=== PATIENT | female | born 1975 | race Caucasian/White ===

== ENCOUNTER 2017-11-10 02:01 | Emergency (ER) | payer BC ==
[2017-11-10 03:56] VITALS: BP 110/62
--- NOTE | 2017-11-10 04:48 | EDM.PDOC ---
ED HPI GENERAL MEDICAL PROBLEM - General Chief Complaint: Drug or Alcohol Abuse Stated Complaint: OVERDOSE Time Seen by Provider: 11/10/17 02:47 Source of Information: Reports: Family History Limitations: Reports: Altered Mental Status - History of Present Illness INITIAL COMMENTS - FREE TEXT/NARRATIVE: This lady was brought in because her family thinks she may hav accidentally take too [facility] medication tonight. Someone checked on her and found that she was very groggy and so became concerned. The patient denies taking too much mediation or trying to hurt herself. Treatments FINANCIAL CENTER MANAGER: Reports: Other (see below) Other Treatments FINANCIAL CENTER MANAGER: Unknown - Related Data Allergies Allergy/AdvReac Type Severity Reaction Status Date / Time clindamycin Allergy Rash Verified 11/10/17 02:21 latex Allergy Hives Verified 11/10/17 02:21 morphine Allergy Swelling Verified 11/10/17 02:21 sertraline HCl [From Zoloft] Allergy Diarrhea Verified 11/10/17 02:21 sulfamethoxazole Allergy Cannot Verified 11/10/17 02:21 [From Bactrim] Remember trimethoprim [From Bactrim] Allergy Cannot Verified 11/10/17 02:21 Remember Home Meds: Home Meds Estrogens, Conjugated [Premarin] 1.25 mg PO DAILY 12/19/12 [History] Gabapentin [Neurontin] 600 mg PO TID 12/19/12 [History] Ibuprofen 600 mg PO Q4HR PRN 01/20/14 [History] Multivitamin [Multivitamins] 1 each PO DAILY 01/20/14 [History] Eszopiclone [Lunesta] 3 mg PO DAILY 02/02/16 [History] Acetaminophen with Codeine [Acetaminophen-Cod #3] 1 tab PO Q4HR PRN 11/10/17 [ History] Carisoprodol 350 mg PO TID 11/10/17 [History] LORazepam 1 mg PO TID 11/10/17 [History] Past Medical History - Past Health History Medical/Surgical History: Denies Medical/Surgical History (Unable to obtain) - Infectious Disease History Infectious Disease History: Reports: Chicken Pox Social & Family History - Family History Family Medical History: Noncontributory - Tobacco Use Smoking Status *Q: Current Every Day Smoker Years of Tobacco use: 30 Packs/Tins Daily: 0.5 Second Hand Smoke Exposure: No - Caffeine Use Caffeine Use: Reports: Soda Other Caffeine Use: mountain dew - 6 12oz cans. - Recreational Drug Use Recreational Drug Use: No - Living Situation & Occupation Living situation: Reports: with Family ED ROS GENERAL - Review of Systems Review Of Systems: ROS reveals no pertinent complaints other than HPI. - Physical Exam Exam: See Below Exam Limited By: Altered Mental Status General Appearance: WD/WN, No Apparent Distress, Other (mild to moderate sedation) Eye Exam: Bilateral Eye: Normal Inspection Ears: Normal External Exam Nose: Normal Inspection Throat/Mouth: Normal Oropharynx Head Exam: Atraumatic Neck: Supple Respiratory/Chest: Lungs Clear Cardiovascular: Regular Rate, Rhythm, No Murmur GI/Abdominal: Soft, Non-Tender Neuro Exam (Abbreviated): CN II-XII Intact, No Motor/Sensory Deficits, Slow to Respond Extremities: Normal Inspection Psychiatric: Normal Affect Skin Exam: Warm, Dry Course - Vital Signs Last Recorded V/S: Last Vital Signs Temp 36.4 C 11/10/17 03:55 Pulse 98 11/10/17 03:55 Resp 14 11/10/17 03:55 BP 110/62 11/10/17 03:55 Pulse Ox 99 11/10/17 03:55 - Orders/Labs/Meds Labs: Laboratory Tests 11/10/17 11/10/17 11/10/17 Range/Units 02:59 02:59 02:59 WBC 9.1 (4.5-11.0) K/uL RBC 4.24 (3.30-5.50) M/uL Hgb 13.2 (12.0-15.0) g/dL Hct 38.8 (36.0-48.0) % MCV 92 (80-98) fL MCH 31 (27-31) pg MCHC 34 (32-36) % Plt Count 242 (150-400) K/uL Neut % (Auto) 51 (36-66) % Lymph % (Auto) 35 (24-44) % [place] % (Auto) 11 H (2-6) % Eos % (Auto) 2 (2-4) % Baso % (Auto) 0 (0-1) % Sodium (140-148) mmol/L Potassium (3.6-5.2) mmol/L Chloride (100-108) mmol/L Carbon Dioxide (21-32) mmol/L Anion Gap (5.0-14.0) mmol/L BUN (7-18) mg/dL Creatinine (0.6-1.0) mg/dL Est Cr Clr Drug Dosing mL/min Estimated GFR (MDRD) (>60) Glucose (74-106) mg/dL Calcium (8.5-10.1) mg/dL Total Bilirubin (0.2-1.0) mg/dL AST (15-37) U/L ALT (12-78) U/L Alkaline Phosphatase (46-116) U/L Total Protein (6.4-8.2) g/dL Albumin (3.4-5.0) g/dL Globulin (2.3-3.5) g/dL Albumin/Globulin Ratio (1.2-2.2) Urine Color Urine Appearance Urine pH (4.5-8.0) Ur Specific [place] (1.008-1.030) Urine Protein (NEGATIVE) mg/dL Urine Glucose (UA) (NEGATIVE) mg/dL Urine Ketones (NEGATIVE) mg/dL Urine Occult Blood (NEGATIVE) Urine Nitrite (NEGATIVE) Urine Bilirubin (NEGATIVE) Urine Urobilinogen (NORMAL) mg/dL Ur Leukocyte Esterase (NEGATIVE) Urine RBC (0-5) Urine WBC (0-5) Ur Epithelial Cells Amorphous Sediment Urine Bacteria Urine Mucus Urine Opiates Screen (NEGATIVE) Ur Oxycodone Screen (NEGATIVE) Urine Methadone Screen (NEGATIVE) Ur Propoxyphene Screen (NEGATIVE) Acetaminophen 0.0 L (10.0-30.0) ug/mL Ur Barbiturates Screen (NEGATIVE) Ur Tricyclics Screen (NEGATIVE) Ur Phencyclidine Scrn (NEGATIVE) Ur Amphetamine Screen (NEGATIVE) U Methamphetamines Scrn (NEGATIVE) Urine MDMA Screen (NEGATIVE) U Benzodiazepines Scrn (NEGATIVE) U Cocaine Metab Screen (NEGATIVE) U Marijuana (THC) Screen (NEGATIVE) Ethyl Alcohol < 3 mg/dL 11/10/17 11/10/17 11/10/17 Range/Units 02:59 03:33 03:37 WBC (4.5-11.0) K/uL RBC (3.30-5.50) M/uL Hgb (12.0-15.0) g/dL Hct (36.0-48.0) % MCV (80-98) fL MCH (27-31) pg MCHC (32-36) % Plt Count (150-400) K/uL Neut % (Auto) (36-66) % Lymph % (Auto) (24-44) % [place] % (Auto) (2-6) % Eos % (Auto) (2-4) % Baso % (Auto) (0-1) % Sodium 139 L (140-148) mmol/L Potassium 4.1 (3.6-5.2) mmol/L Chloride 102 (100-108) mmol/L Carbon Dioxide 26 (21-32) mmol/L Anion Gap 15.1 H (5.0-14.0) mmol/L BUN 13 (7-18) mg/dL Creatinine 1.0 (0.6-1.0) mg/dL Est Cr Clr Drug Dosing 62.33 mL/min Estimated GFR (MDRD) > 60 (>60) Glucose 95 (74-106) mg/dL Calcium 8.2 L (8.5-10.1) mg/dL Total Bilirubin 0.2 (0.2-1.0) mg/dL AST 32 (15-37) U/L ALT 17 (12-78) U/L Alkaline Phosphatase 65 D (46-116) U/L Total Protein 6.9 (6.4-8.2) g/dL Albumin 3.1 L (3.4-5.0) g/dL Globulin 3.8 H (2.3-3.5) g/dL Albumin/Globulin Ratio 0.8 L (1.2-2.2) Urine Color Yellow Urine Appearance Cloudy Urine pH 8.0 (4.5-8.0) Ur Specific [place] 1.010 (1.008-1.030) Urine Protein Negative (NEGATIVE) mg/dL Urine Glucose (UA) Normal (NEGATIVE) mg/dL Urine Ketones Negative (NEGATIVE) mg/dL Urine Occult Blood Negative (NEGATIVE) Urine Nitrite Positive H (NEGATIVE) Urine Bilirubin Negative (NEGATIVE) Urine Urobilinogen Normal (NORMAL) mg/dL Ur Leukocyte Esterase Moderate (NEGATIVE) Urine RBC 0-5 (0-5) Urine WBC 5-10 H (0-5) Ur Epithelial Cells Moderate Amorphous Sediment Not seen Urine Bacteria Many Urine Mucus Not seen Urine Opiates Screen Negative (NEGATIVE) Ur Oxycodone Screen Negative (NEGATIVE) Urine Methadone Screen Negative (NEGATIVE) Ur Propoxyphene Screen Negative (NEGATIVE) Acetaminophen (10.0-30.0) ug/mL Ur Barbiturates Screen Negative (NEGATIVE) Ur Tricyclics Screen Negative (NEGATIVE) Ur Phencyclidine Scrn Negative (NEGATIVE) Ur Amphetamine Screen Negative (NEGATIVE) U Methamphetamines Scrn Negative (NEGATIVE) Urine MDMA Screen Negative (NEGATIVE) U Benzodiazepines Scrn Presumptive positive H (NEGATIVE) U Cocaine Metab Screen Negative (NEGATIVE) U Marijuana (THC) Screen Presumptive positive H (NEGATIVE) Ethyl Alcohol mg/dL - Re-Assessments/Exams Free Text/Narrative Re-Assessment/Exam: 11/17/17 05:38 This lady was observed in the ER until she was more alert and could be safely discharged. Departure - Departure Time of Disposition: 04:45 Disposition: Home, Self-Care 01 Condition: Fair Clinical Impression: Accidental drug overdose, Urinary tract infection - Discharge Information *PRESCRIPTION DRUG MONITORING PROGRAM REVIEWED*: No Instructions: Accidental Overdose, Urinary Tract Infection, Adult, [id number] Referrals: PCP,None [Primary Care Provider] - Forms: ED Department Discharge Additional Instructions: Avoid overuse of prescription medications. Use of a weekly pill organizer will help alot. Take cipro 250 mg twice daily for 5 days for bladder infection.
== END 2017-11-10 05:05 | disposition home or self-care (01) ==
LOC: JP.ED 02:01
DX: T50.901A Poisoning by unspecified drugs, medicaments and biological substances, accidental (unintentional), initial encounter (principal); N39.0 Urinary tract infection, site not specified; F17.210 Nicotine dependence, cigarettes, uncomplicated; Z91.040 Latex allergy status; Z88.1 Allergy status to other antibiotic agents; Z88.5 Allergy status to narcotic agent; Z88.2 Allergy status to sulfonamides
CPT/HCPCS: 36415; 80053; 80305; 81001; 85025; 93005; 99284; G0480

== ENCOUNTER 2018-06-29 12:31 | Emergency (ER) | payer BC ==
[2018-06-29] MEDS ORDERED: Lactated Ringers 1,000 ML IV ONE ×2 (12:50→14:04)
--- NOTE | 2018-06-29 12:56 | EDM.PDOC ---
ED HPI GENERAL MEDICAL PROBLEM - General Chief Complaint: General Stated Complaint: ABD/KIDNEY PAIN Time Seen by Provider: 06/29/18 12:45 Source of Information: Reports: Family, Old Records, RN History Limitations: Reports: Other (patient non-verbal) - History of Present Illness INITIAL COMMENTS - FREE TEXT/NARRATIVE: 43 yo female here with a change in her mental status that occurred about 11 am today. Her signficant other had to carry her in to his car and then she required extrication once in our garage. Was acting fully normal up to that point today. Ate hash browns for breakfast. 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 Is on some other meds as well. Will not speak today. Does not seem to be aware of surroundings at this time. Last year was here and dx with an "accidental home medication overdose" and sent home from the ER after treatment. Onset: Today Onset Date: 06/29/18 Onset Time: 11:00 Duration: Hour(s):, Constant Location: Reports: Generalized Quality: Reports: Other (no reported pain) Severity: Moderate Improves with: Reports: None Worsens with: Reports: Other (unknown) Context: Reports: Other (uncertain, see HPI) Associated Symptoms: Reports: Confusion Treatments CLAIMS SUPPORT SPECIALIST: Reports: Other (see below) (none) denies Pain Score (Numeric/FACES): 0 - Related Data Allergies Allergy/AdvReac Type Severity Reaction Status Date / Time clindamycin Allergy Rash Verified 06/29/18 13:20 latex Allergy Hives Verified 06/29/18 13:20 morphine Allergy Swelling Verified 06/29/18 13:20 sertraline HCl [From Zoloft] Allergy Diarrhea Verified 06/29/18 13:20 sulfamethoxazole Allergy Cannot Verified 06/29/18 13:20 [From Bactrim] Remember trimethoprim [From Bactrim] Allergy Cannot Verified 06/29/18 13:20 Remember Home Meds: Home Meds Estrogens, Conjugated [Premarin] 1.25 mg PO DAILY 12/19/12 [History] Ibuprofen 600 mg PO Q4HR PRN 01/20/14 [History] Multivitamin [Multivitamins] 1 each PO DAILY 01/20/14 [History] Acetaminophen with Codeine [Acetaminophen-Cod #3] 1 tab PO Q4HR PRN 11/10/17 [ History] Carisoprodol 350 mg PO TID 11/10/17 [History] Past Medical History - Past Health History Medical/Surgical History: Denies Medical/Surgical History (Unable to obtain) - Infectious Disease History Infectious Disease History: Reports: Chicken Pox Social & Family History - Family History Family Medical History: Noncontributory - Caffeine Use Caffeine Use: Reports: Soda Other Caffeine Use: mountain dew - 6 12oz cans. - Living Situation & Occupation Living situation: Reports: with Family ED ROS GENERAL - Review of Systems Review Of Systems: See Below Constitutional: Reports: No Symptoms HEENT: Reports: No Symptoms Respiratory: Reports: No Symptoms Cardiovascular: Reports: No Symptoms Endocrine: Reports: No Symptoms GI/Abdominal: Reports: No Symptoms : Reports: No Symptoms Musculoskeletal: Reports: No Symptoms Skin: Reports: No Symptoms Neurological: Reports: Confusion, Trouble Speaking, Weakness (generalized) Psychiatric: Reports: Other (no interaction, flat affect) ED EXAM, GENERAL - Physical Exam Exam: See Below Exam Limited By: No Limitations General Appearance: Alert, WD/WN, Mild Distress Eye Exam: Bilateral Eye: Normal Inspection, PERRL (eyes not focusing on anything well. ) Ears: Normal External Exam, Normal Canal, Normal TMs Ear Exam: Bilateral Ear: Auricle Normal, Canal Normal, TM normal Nose: Normal Inspection, Normal Mucosa, No Blood Throat/Mouth: Normal Inspection, Normal Lips, Normal Oropharynx, Normal Voice, No Airway Compromise Head: Atraumatic, Normocephalic Neck: Normal Inspection, Supple, Non-Tender Respiratory/Chest: No Respiratory Distress, Lungs Clear, Normal Breath Sounds, No Accessory Muscle Use Cardiovascular: Regular Rate, Rhythm, No Edema GI/Abdominal: Normal Bowel Sounds, Soft, Non-Tender, No Distention Back Exam: Normal Inspection Extremities: Normal Inspection, Normal Range of Motion, Non-Tender, No Pedal Edema Neurological: Alert, CN II-XII Intact, No Motor/Sensory Deficits, Unresponsive ( awake, does not give a verbal response.) Psychiatric: Flat Affect Skin Exam: Warm, Dry, Intact, Normal Color, No Rash Course - Vital Signs Text/Narrative:: After 2 liters of LR and diphenhydramine 25 mg IV her BP is consistently staying now above 100. She is more alert and able to carry on a conversation. Is still mildly confused. Able to walk safely without assistance. Last Recorded V/S: Last Vital Signs Temp 36.1 C 06/29/18 13:31 Pulse 101 H 06/29/18 13:31 Resp 20 06/29/18 13:31 BP 97/65 06/29/18 13:31 Pulse Ox 97 06/29/18 13:31 - Orders/Labs/Meds Labs: Laboratory Tests 06/29/18 06/29/18 06/29/18 Range/Units 12:43 12:50 13:07 WBC 7.7 (4.5-11.0) K/uL RBC 3.92 (3.30-5.50) M/uL Hgb 12.1 (12.0-15.0) g/dL Hct 35.6 L (36.0-48.0) % MCV 91 (80-98) fL MCH 31 (27-31) pg MCHC 34 (32-36) % Plt Count 232 (150-400) K/uL Sodium (140-148) mmol/L Potassium (3.6-5.2) mmol/L Chloride (100-108) mmol/L Carbon Dioxide (21-32) mmol/L Anion Gap (5.0-14.0) mmol/L BUN (7-18) mg/dL Creatinine (0.6-1.0) mg/dL Est Cr Clr Drug Dosing mL/min Estimated GFR (MDRD) (>60) Glucose (74-106) mg/dL Calcium (8.5-10.1) mg/dL Urine Color Yellow Urine Appearance Cloudy Urine pH 5.0 (4.5-8.0) Ur Specific [place] 1.020 (1.008-1.030) Urine Protein Trace (NEGATIVE) mg/dL Urine Glucose (UA) Normal (NEGATIVE) mg/dL Urine Ketones Negative (NEGATIVE) mg/dL Urine Occult Blood Negative (NEGATIVE) Urine Nitrite Positive H (NEGATIVE) Urine Bilirubin Negative (NEGATIVE) Urine Urobilinogen Normal (NORMAL) mg/dL Ur Leukocyte Esterase Trace (NEGATIVE) Urine RBC Not seen (0-5) Urine WBC 0-5 (0-5) Ur Epithelial Cells Few Amorphous Sediment Not seen Urine Bacteria Many Urine Mucus Not seen Urine Opiates Screen Negative (NEGATIVE) Ur Oxycodone Screen Negative (NEGATIVE) Urine Methadone Screen Negative (NEGATIVE) Ur Propoxyphene Screen Negative (NEGATIVE) Ur Barbiturates Screen Negative (NEGATIVE) Ur Tricyclics Screen Presumptive positive H (NEGATIVE) Ur Phencyclidine Scrn Negative (NEGATIVE) Ur Amphetamine Screen Negative (NEGATIVE) U Methamphetamines Scrn Negative (NEGATIVE) Urine MDMA Screen Negative (NEGATIVE) U Benzodiazepines Scrn Negative (NEGATIVE) U Cocaine Metab Screen Negative (NEGATIVE) U Marijuana (THC) Screen Negative (NEGATIVE) 06/29/18 Range/Units 13:07 WBC (4.5-11.0) K/uL RBC (3.30-5.50) M/uL Hgb (12.0-15.0) g/dL Hct (36.0-48.0) % MCV (80-98) fL MCH (27-31) pg MCHC (32-36) % Plt Count (150-400) K/uL Sodium 139 L (140-148) mmol/L Potassium 3.7 (3.6-5.2) mmol/L Chloride 106 (100-108) mmol/L Carbon Dioxide 25 (21-32) mmol/L Anion Gap 11.7 (5.0-14.0) mmol/L BUN 16 (7-18) mg/dL Creatinine 0.9 (0.6-1.0) mg/dL Est Cr Clr Drug Dosing 71.78 mL/min Estimated GFR (MDRD) > 60 (>60) Glucose 86 (74-106) mg/dL Calcium 8.3 L (8.5-10.1) mg/dL Urine Color Urine Appearance Urine pH (4.5-8.0) Ur Specific [place] (1.008-1.030) Urine Protein (NEGATIVE) mg/dL Urine Glucose (UA) (NEGATIVE) mg/dL Urine Ketones (NEGATIVE) mg/dL Urine Occult Blood (NEGATIVE) Urine Nitrite (NEGATIVE) Urine Bilirubin (NEGATIVE) Urine Urobilinogen (NORMAL) mg/dL Ur Leukocyte Esterase (NEGATIVE) Urine RBC (0-5) Urine WBC (0-5) Ur Epithelial Cells Amorphous Sediment Urine Bacteria Urine Mucus Urine Opiates Screen (NEGATIVE) Ur Oxycodone Screen (NEGATIVE) Urine Methadone Screen (NEGATIVE) Ur Propoxyphene Screen (NEGATIVE) Ur Barbiturates Screen (NEGATIVE) Ur Tricyclics Screen (NEGATIVE) Ur Phencyclidine Scrn (NEGATIVE) Ur Amphetamine Screen (NEGATIVE) U Methamphetamines Scrn (NEGATIVE) Urine MDMA Screen (NEGATIVE) U Benzodiazepines Scrn (NEGATIVE) U Cocaine Metab Screen (NEGATIVE) U Marijuana (THC) Screen (NEGATIVE) Meds: Medications Discontinued Medications Generic Name Dose Route Start Last Admin Trade Name Freq PRN Reason Stop Dose Admin Diphenhydramine HCl 25 mg 06/29/18 13:29 06/29/18 13:41 Benadryl IVPUSH 06/29/18 13:30 25 mg ONETIME ONE Administration Lactated Ringer's 1,000 mls @ 1,000 mls/hr 06/29/18 12:50 06/29/18 13:25 Ringers, Lactated IV 06/29/18 13:49 1,000 mls/hr BOLUS ONE Administration Lactated Ringer's 1,000 mls @ 1,000 mls/hr 06/29/18 14:04 06/29/18 14:21 Ringers, Lactated IV 06/29/18 15:03 1,000 mls/hr BOLUS ONE Administration Departure - Departure Time of Disposition: 15:30 Disposition: Home, Self-Care 01 Condition: Fair Clinical Impression: Accidental carisoprodol overdose Qualifiers: Encounter type: initial encounter Qualified Code(s): T42.8X1A - Poisoning by antiparkinsonism drugs and other central muscle-tone depressants, accidental ( unintentional), initial encounter - Discharge Information *PRESCRIPTION DRUG MONITORING PROGRAM REVIEWED*: No *COPY OF PRESCRIPTION DRUG MONITORING REPORT IN PATIENT JCAKSON: No Referrals: PCP,None [Primary Care Provider] - Forms: ED Department Discharge Additional Instructions: No carisoprodol today, if you use this in the future take no more than every 12 hrs. Report your problem today to the prescribing doctor for this medicine. No driving. Return if worse.
[2018-06-29] MEDS ORDERED: diphenhydrAMINE 50 MG/ML SDV IVPUSH ONE (13:29)
[2018-06-29 15:39] VITALS: BP 101/60
== END 2018-06-29 15:40 | disposition home or self-care (01) ==
LOC: JP.ED 12:31
DX: T42.8X1A Poisoning by antiparkinsonism drugs and other central muscle-tone depressants, accidental (unintentional), initial encounter (principal); R41.0 Disorientation, unspecified; Z88.8 Allergy status to other drugs, medicaments and biological substances; Z88.2 Allergy status to sulfonamides; Z88.5 Allergy status to narcotic agent; Z91.040 Latex allergy status; Z79.899 Other long term (current) drug therapy
CPT/HCPCS: 36415; 80048; 80305; 81001; 85027; 96361; 96374; 99283; J1200; J7120